=== PATIENT | male | born 1955 | race Caucasian/White ===

== ENCOUNTER 2020-10-31 07:29 | Outpatient (CLI) | payer MEDICARE, SELFPAY ==
--- NOTE | ~2020-10-31 | US_ITS ---
EXAMINATION: US aorta [facility] scrn DATE: 10/31/2020 08:10 CDT INDICATION: Screening for abdominal aortic aneurysm. Hypertension. High cholesterol. TECHNIQUE: Grayscale, color Doppler, and pulsed Doppler images of the aorta and common iliac arteries were obtained. COMPARISON: None. FINDINGS: The proximal aorta measures 2.5 cm greatest sagittal dimension. The mid aorta measures 1.8 cm greates t sagittal dimension. The distal aorta measures 1.5 cm greatest sagittal dimension. The right common internal iliac artery measures 8 mm. The left common iliac artery measures 7 mm. IMPRESSION: 1. Normal caliber aorta without evidence for aneurysm. Reviewed, dictated and finalized at location B.
--- NOTE | ~2020-10-31 | CT_ITS ---
EXAMINATION: CT lung screening DATE: 10/31/2020 08:07 INDICATION: History of tobacco dependence. Lung cancer screening. TECHNIQUE: Computed tomography (CT) of the chest was performed without intravenous contrast. The dose -length product was 186.33 mGy-cm. Automated exposure control and iterative reconstruction technique were employed. COMPARISON: None FINDINGS: Heart size is normal. There is mild atherosclerosis. No evidence for aneurysm. No significa nt pleural or pericardial effusion. There are a few scattered 2 mm nodules in the upper lobes. There is a 4 mm right upper lobe nodule, image 53. No endobronchial lesions. Thyroid gland is unremarkable. The upper abdomen is within normal limits. No lytic or blastic lesions. No acute osseous abnormality . IMPRESSION: 1. Lung-RADS category 2: Benign appearance or behavior. Continue annual screening with noncontrast lo w-dose chest CT in 12 months. Reviewed, dictated and finalized at location B. IMPRESSION: 1. Lung-RADS category 2: Benign appearance or behavior. Continue annual screeni ng with noncontrast low-dose chest CT in 12 months.
== END 2020-10-31 07:30 | disposition home or self-care (01) ==
PROVIDERS: PCP Family Medicine; Visit Provider Family Medicine
DX: Z12.2 Encounter for screening for malignant neoplasm of respiratory organs (principal); Z13.6 Encounter for screening for cardiovascular disorders; Z87.891 Personal history of nicotine dependence
CPT/HCPCS: 71271; 76706

== ENCOUNTER 2020-11-05 09:11 | Outpatient (CLI) | payer MEDICARE, SELFPAY ==
--- NOTE | ~2020-11-05 | NM_ITS ---
EXAMINATION: NM stress w perf spect multi DATE: 11/05/2020 11:37 INDICATION: Abnormal EKG TECHNIQUE: Rest images were obtained following intravenous administration of 9.8 mCi Tc99m tetrofosmi n ([employer]). The patient performed an exercise activity. At peak exercise, 31.5 mCi Tc99m tetrofosmin ([employer]) was administered intravenously, and stress images were obtained. Data was reconstructed in to short axis and horizontal and vertical long axis SPECT images. Gated SPECT images were also obtain ed. COMPARISON: None. FINDINGS: There is normal left ventricular perfusion without definite evidence of reversible or fixed perfusion abnormality to suggest ischemia or infarction. There is normal left ventricular chamber size, wall motion and ejection fraction. Left ventricular ejection fraction measures >70%. IMPRESSION: 1. Normal myocardial perfusion at rest and during stress. 2. Left ventricular ejection fraction measuring >70%. Reviewed, dictated and finalized at location A.
--- NOTE | 2020-11-05 09:30 | EST_ITS ---
Patient Info Name: Marcello Villar Age: 65 years : 1955 Gender: Male Ht: 72 in Wt: 230 lbs BSA: 2.33 m2 Exam Date: 11/05/2020 10:14 AM Exam Location: [facility] Stress Patient Status: Outpatient Admit Date: 11/05/2020 Staff Ordering Physician: Jessica Chappell MD Attending Provider: Jessica Chappell MD Exercise Technologist: Sonya Stroud RDCS Exercise Physician: Guilherme Coffey DO Exam Type: CA stress test treadmill w NM Study Info Indications R94.31 - Abnormal electrocardiogram ECG EKG A pharmacological stress test was performed. Summary 1. 1. Negative Erick exercise stress test for ischemic ST changes by ECG criteria. 2. 2. Reduced functional capacity, achieving 7 METs of workload. 3. 3. Baseline hypertension with hypertensive response to exercise. 4. 4. Appropriate HR response to exercise. 5. 5. Appropriate HR recovery at 1 minute post exercise. 6. 6. Nuclear scan to follow and will be reported separately. Please correlate with it. 7. 7. Patient informed of the above results. Protocol: Erick Stress ECG Details Stage: REST Duration (min): 3 min : 13 sec Speed (mph): 0.0 Grade (%): 0 HR (bpm): 59 SBP (mmHg): 161 DBP (mmHg): 72 METS: --- Stage: REST Duration (min): 14 min : 0 sec Speed (mph): 0.0 Grade (%): 0 HR (bpm): 78 SBP (mmHg): 161 DBP (mmHg): 72 METS: --- Stage: STAGE 1 Duration (min): 1 min : 0 sec Speed (mph): 1.7 Grade (%): 10 HR (bpm): 95 SBP (mmHg): 161 DBP (mmHg): 72 METS: --- Stage: STAGE 1 Duration (min): 2 min : 0 sec Speed (mph): 1.7 Grade (%): 10 HR (bpm): 103 SBP (mmHg): 161 DBP (mmHg): 72 METS: --- Stage: STAGE 1 Duration (min): 3 min : 0 sec Speed (mph): 1.7 Grade (%): 10 HR (bpm): 107 SBP (mmHg): 213 DBP (mmHg): 62 METS: --- Stage: STAGE 2 Duration (min): 1 min : 0 sec Speed (mph): 2.5 Grade (%): 12 HR (bpm): 120 SBP (mmHg): 213 DBP (mmHg): 62 METS: --- Stage: STAGE 2 Duration (min): 2 min : 0 sec Speed (mph): 2.5 Grade (%): 12 HR (bpm): 130 SBP (mmHg): 214 DBP (mmHg): 74 METS: --- Stage: STAGE 2 Duration (min): 3 min : 0 sec Speed (mph): 2.5 Grade (%): 12 HR (bpm): 140 SBP (mmHg): 214 DBP (mmHg): 74 METS: --- Stage: STAGE 3 Duration (min): 0 min : 10 sec Speed (mph): 3.4 Grade (%): 14 HR (bpm): 143 SBP (mmHg): 214 DBP (mmHg): 74 METS: --- Stage: RECOVERY Duration (min): 0 min : 49 sec Speed (mph): 0.0 Grade (%): 0 HR (bpm): 121 SBP (mmHg): 249 DBP (mmHg): 72 METS: --- Stage: RECOVERY Duration (min): 1 min : 49 sec Speed (mph): 0.0 Grade (%): 0 HR (bpm): 98 SBP (mmHg): 249 DBP (mmHg): 72 METS: --- Stage: RECOVERY Duration (min): 2 min : 49 sec Speed (mph): 0.0 Grade (%): 0 HR (bpm): 75 SBP (mmHg): 249
== END 2020-11-05 09:12 | disposition home or self-care (01) ==
PROVIDERS: PCP Family Medicine; Visit Provider Family Medicine
DX: R94.31 Abnormal electrocardiogram [ECG] [EKG] (principal); I35.9 Nonrheumatic aortic valve disorder, unspecified; I10 Essential (primary) hypertension; E78.5 Hyperlipidemia, unspecified
CPT/HCPCS: 78452; 93017; A9502

== ENCOUNTER 2021-10-21 12:29 | Outpatient (CLI) | payer MEDICARE, SELFPAY ==
--- NOTE | ~2021-10-21 | XR_ITS ---
EXAM: [id number] HISTORY: M54.12 - Radiculopathy, cervical region, pain x1 mo, NKI COMPARISON: None available FINDINGS: Craniocervical association and atlantoaxial joint are normal. No prevertebral soft tissue swelling. 3 mm anterolisthesis of C4 on C5. Trace anterolisthesis of C3 on C4. Moderate disc space na rrowing at C4-5. C6-7. Multilevel facet sclerosis and hypertrophy. IMPRESSION: Grade 1 anterolisthesis of C4 on C5. Multilevel moderate degenerative disc disease. Multilevel modera te facet arthropathy. Reviewed, dictated and finalized at location K. IMPRESSION: Grade 1 anterolisthesis of C4 on C5. Multilevel moderate degenerative disc dise ase. Multilevel moderate facet arthropathy.
== END 2021-10-21 12:30 | disposition home or self-care (01) ==
LOC: ANHIMG 12:34
PROVIDERS: PCP Family Medicine; Visit Provider Family Medicine
DX: M54.12 Radiculopathy, cervical region (principal); M50.30 Other cervical disc degeneration, unspecified cervical region
CPT/HCPCS: 72040

== ENCOUNTER 2021-10-24 06:53 | Outpatient (CLI) | payer MEDICARE, SELFPAY ==
--- NOTE | ~2021-10-24 | CT_ITS ---
EXAMINATION: CT lung screening EXAM DATE: 10/24/2021 07:17 INDICATION: Z12.2 - Encounter for screening for malignant neoplasm of... TECHNIQUE: Spiral low dose CT of the chest without contrast. Axial, coronal and sagittal images were reviewed. The dose-length product (DLP) for this examination was 211.51 mGy-cm. The exposure was t ailored according to patient size (auto mA exposure control), and iterative reconstruction (ASIR) was used as additional dose reduction technique. Comparison is made to prior examination from 10/31/2020. FINDINGS: There is 3 mm right upper lobe nodule unchanged. Tracheobronchial tree is patent. There is no mediastinal, hilar or axillary lymphadenopathy. There are no pleural or pericardial effusion s. There is no pneumothorax. Heart normal in size. No evidence of coronary arterial calcificati on. Upper abdomen is unremarkable. There is thoracic spondylosis without osteoblastic or osteolytic lesions identified. IMPRESSION: Lung-RADS category 2, benign appearance or behavior (<1% chance of malignancy); recommend continued LDCT screening in 1 year. Reviewed, dictated and finalized at location A.
== END 2021-10-24 06:54 | disposition home or self-care (01) ==
PROVIDERS: PCP Family Medicine; Visit Provider Family Medicine
DX: Z12.2 Encounter for screening for malignant neoplasm of respiratory organs (principal); Z87.891 Personal history of nicotine dependence
CPT/HCPCS: 71271